=== PATIENT | male | born 1965 | race Caucasian/White ===

== ENCOUNTER 2019-04-06 13:16 | Emergency (ER) | payer BC ==
--- NOTE | 2019-04-06 14:20 | ED Physician Documentation ---
PD HPI CHEST PAIN - Stated complaint Stated Complaint: /VOMITING/SHAKING - Chief complaint Chief Complaint: Abd Pain - History obtained from History obtained from: Patient - History of Present Illness Timing - onset: How many hours ago (1) Timing - onset during: Rest Timing - duration: Hours (1) Timing - details: Abrupt onset Pain level max: 4 Pain level now: 3 Quality: Pressure, Tightness Location: Substernal Radiation: No: Jaw, Neck, Back, Abdominal, Left upper extremity, Right upper extremity Improved by: Nothing. No: Rest, Oxygen, Nitro, ASA, Antacids, Other medication Worsened by: No: Exertion, Inspiration, Eating, Movement, Palpation, Position Associated symptoms: No: Shortness of air, Diaphoresis, Nausea, Vomiting, Feeling faint / dizzy, General Weakness, Palpitations, Cough - Additional information Additional information: started after eating bratwurst Review of Systems Ten Systems: 10 systems reviewed and negative Constitutional: denies: Fever, Chills Respiratory: denies: Cough GI: denies: Nausea, Vomiting, Diarrhea Skin: denies: Rash Musculoskeletal: denies: Neck pain, Back pain Neurologic: denies: Headache PD PAST MEDICAL HISTORY - Past Medical History Past Medical History: Yes Cardiovascular: Hypertension, Other Respiratory: Sleep apnea, CPAP use Neuro: Other Endocrine/Autoimmune: Type 2 diabetes GI: None : None Musculoskeletal: None - Present Medications Home Medications: Ambulatory Orders Medication Instructions Recorded Confirmed No Known Home Medications 04/06/19 04/06/19 - Allergies Allergies/Adverse Reactions: Allergies Allergy/AdvReac Type Severity Reaction Status Date / Time prednisone AdvReac Unknown Verified 04/06/19 13:22 - Social History Does the pt smoke?: Yes Smoking Status: Current every day smoker PD ED PE NORMAL - Vitals Vital signs reviewed: Yes - General General: Alert and oriented X 3, No acute distress, Well developed/nourished - HEENT HEENT: PERRL, Moist mucous membranes - Neck Neck: Supple, no meningeal sign, No bony TTP - Cardiac Cardiac: RRR, Strong equal pulses - Respiratory Respiratory: No respiratory distress, Clear bilaterally - Abdomen Abdomen: Soft, Non tender, Non distended - Back Back: No spinal TTP - Derm Derm: Warm and dry - Extremities Extremities: No edema, No calf tenderness / cord - Neuro Neuro: Alert and oriented X 3 - Psych Psych: Normal mood, Normal affect Results - Vitals Vitals: Oxygen O2 Source Room air - EKG (time done) 1328 Rate: Rate (enter#) (67) Rhythm: NSR [place]: Normal Intervals: Normal FL QRS: Normal Ischemia: ST elevation c/w repol - Labs Labs: Laboratory Tests 04/06/19 04/06/19 04/06/19 13:40 14:34 14:34 WBC 6.3 RBC 4.65 L Hgb 13.0 L Hct 38.4 L MCV 82.6 MCH 28.0 MCHC 33.9 RDW 12.8 Plt Count 153 MPV 13.4 H Neut # (Auto) 4.8 Lymph # (Auto) 1.0 L Nye # (Auto) 0.5 Eos # (Auto) 0.0 Baso # (Auto) 0.0 Absolute Nucleated RBC 0.00 Nucleated RBC % 0.0 Sodium 133 L Potassium 4.5 Chloride 97 L Carbon Dioxide 24 Anion Gap 12.0 BUN 13 Creatinine 0.7 Estimated GFR (MDRD) 118 Glucose 319 H POC Whole Bld Glucose 317 H Calcium 9.0 Total Bilirubin 1.0 AST 16 ALT 18 Alkaline Phosphatase 48 Troponin I Troponin I High Sens Total Protein 7.1 Albumin 4.1 Globulin 3.0 Albumin/Globulin Ratio 1.4 Lipase 35 04/06/19 04/06/19 14:34 16:31 WBC RBC Hgb Hct MCV MCH MCHC RDW Plt Count MPV Neut # (Auto) Lymph # (Auto) Nye # (Auto) Eos # (Auto) Baso # (Auto) Absolute Nucleated RBC Nucleated RBC % Sodium Potassium Chloride Carbon Dioxide Anion Gap BUN Creatinine Estimated GFR (MDRD) Glucose POC Whole Bld Glucose Calcium Total Bilirubin AST ALT Alkaline Phosphatase Troponin I < 0.04 < 0.04 Troponin I High Sens 3.7 3.2 Total Protein Albumin Globulin Albumin/Globulin Ratio Lipase - Rads (name of study) cxr Radiology: Prelim report reviewed, EMP read contemporaneously, See rad report (No acute disease) PD MEDICAL DECISION MAKING - ED course Complexity details: reviewed results, re-evaluated patient, considered differential (No ST elevation [place], no aortic dissection, no PE, no tension pneumothorax, no aortic aneurysm), d/w patient ED course: 53-year-old male with atypical chest pain. Negative high-sensitivity troponin x2. No acute findings on EKG. Normal chest x-ray. Patient counseled regarding signs and symptoms for which I believe and urgent re-evaluation would be necessary. Patient with good understanding of and agreement to plan and is comfortable going home at this time This document was made in part using voice recognition software. While efforts are made to proofread this document, sound alike and grammatical errors may occur. Departure - Departure Disposition: Home, Self Care Clinical Impression: Chest pain Qualifiers: Chest pain type: unspecified Qualified Code(s): R07.9 - Chest pain, unspecified Condition: Good Instructions: ED Chest Pain Atypical Unkn Cause Follow-Up: Guillermina Garces ND [Primary Care Provider] - Within 1 week Comments: Return if you worsen. Follow-up with your doctor for further care. There is no evidence of a heart attack today. You should have a cardiac stress test within the next week with your doctor. Start on a baby aspirin daily Discharge Date/Time: 04/06/19 17:52
[2019-04-06 14:29] LABS: BASOPHILS % (AUTO) 0.3 %; EOSINOPHILS % (AUTO) 0.5 %; LYMPHOCYTES % (AUTO) 15.2 %; MEAN CORPUSCULAR HGB CONC 33.9 g/dL (32.0-36.0); MEAN CORPUSCULAR VOLUME 82.6 fL (80.0-94.0); MEAN PLATELET VOLUME 13.4 fL (7.4-11.4); MONOCYTES # (AUTO) 0.5 10^3/uL (0.0-1.0); MONOCYTES % (AUTO) 7.4 %; NEUTROPHILS # (AUTO) 4.8 10^3/uL (1.5-6.6); NEUTROPHILS % (AUTO) 76.3 %; PLT - PLATELET COUNT 153 10^3/uL (130-450); RED BLOOD COUNT 4.65 10^6/uL (4.70-6.10); RED CELL DISTRIBUTION WIDTH 12.8 % (12.0-15.0); WHITE BLOOD COUNT 6.3 x10^3/uL (4.8-10.8)
--- NOTE | 2019-04-06 14:41 | XRAY Report ---
Reason: Chest Pain Procedure Date: 04/06/2019 Accession Number: [id number] / [id number] Procedure: XR - Chest 1 View X-Ray CPT Code: 52558 FULL RESULT: EXAM: CHEST RADIOGRAPHY EXAM DATE: 04/06/2019 02:23 PM. CLINICAL HISTORY: Chest pain. COMPARISON: None. TECHNIQUE: 1 view. FINDINGS: Lungs/Pleura: No focal opacities evident. No pleural effusion. No pneumothorax. Mediastinum: Within exam limitations, the cardiomediastinal contour is normal. Other: None. IMPRESSION: No acute cardiopulmonary abnormality. RADIA
[2019-04-06 14:55] LABS: ALBUMIN 4.1 g/dL (3.2-5.5); ALBUMIN/GLOBULIN RATIO 1.4 (1.0-2.2); CREATININE 0.7 mg/dL (0.6-1.2); TOTAL PROTEIN 7.1 g/dL (6.7-8.2)
[2019-04-06 15:01] LABS: TROPONIN I < 0.04 ng/mL (<0.49)
[2019-04-06 16:53] LABS: TROPONIN I < 0.04 ng/mL (<0.49)
[2019-04-06 17:23] VITALS: BP 155/92
== END 2019-04-06 17:52 | disposition home or self-care (01) ==
LOC: ED 13:16
DX: R07.9 Chest pain, unspecified (principal); I10 Essential (primary) hypertension; E11.9 Type 2 diabetes mellitus without complications; F17.200 Nicotine dependence, unspecified, uncomplicated
CPT/HCPCS: 36415; 71045; 80053; 83690; 84484; 85025; 93005; 99284

== ENCOUNTER 2022-01-15 08:00 | Outpatient (CLI) | payer BC | END 2022-01-16 21:04 | disposition home or self-care (01) | LOC: LAB.N 08:00 | PROVIDERS: ATTEND Nurse Practitioner | DX: U07.1 COVID-19 (principal) ==

== ENCOUNTER 2023-09-02 08:12 | Outpatient (CLI) | payer BC ==
--- NOTE | 2023-09-02 09:27 | Sleep Patient Instructions ---
Sleep Center Visit Summary - Patient Visit Information Reason for Visit: Initial consultation - Patient Instructions Additional Instructions: You will continue with CPAP therapy with pressure set at 6-16 cmH2O. A supply prescription will be updated with your DME once we have a copy of your sleep study. We encourage you to continue to try to lose weight. Please follow up with the sleep care office in 3 months. - Clinic Information Contact: [facility] [address] [place] [id number] [email or web address] T: [phone]
--- NOTE | 2023-09-02 09:36 | SLEEP CARE CONSULTATION ---
Information from patient questionnaire entered by Nasra Zuniga. I have reviewed and concur with the information entered by Nasra Zuniga. This document represents the service I personally performed and the decisions made by me, Josephine Dumont ARNP. History of Present Illness Service Date and Time: 09/02/2023 0812 Reason for Visit: New patient, sleep apnea on CPAP therapy Chief Complaint: reports: Other (establish care) Date of Onset: 25+YRS Usual bedtime: 1130PM Time it takes to fall asleep: 60+MINS Snores at night: Yes Observed to quit breathing while asleep: Yes Sleeps alone due to snoring: No Number of times waking at night: 2 Reasons for waking at night: reports: Pain, Bathroom, Other (NOISE) Toss, Turn, or Twitch while sleeping: Yes Recalls having dreams: Yes Usually gets out of bed at: 3-10AM Feels refreshed in the morning: No Morning headache: No Sleepy or fatigued during the day: Yes Ever fallen asleep while driving: Yes Takes day naps: Yes Dreams during day naps: No Prior sleep studies: Yes Additional HPI information: EDUIN CARVAJAL was previously diagnosed to have unknown, AHI unknown, sleep apnea-hypopnea syndrome originally in 1999 and comes in today to establish care for CPAP therapy. Patient needs to be seen in [place] and records have been requested. He thinks that he last had a sleep study around 2019 when he got his new DreamStation that was then replaced with a DreamStation 2 by [employer]. - Parasomnia Symptoms Ever been unable to move upon waking from sleep: No Walks in sleep: No Talks in sleep: Yes Ever acted out dreams in sleep: Yes Ever felt weak in the knees when startled or emotional: No Bothered by creepy, crawly, restless sensations in legs: Yes Problems with memory or concentration: Yes CPAP Compliance Data - Data Reviewed with Patient Average duration of nightly device use: 6.04 hours Compliance rate %: 89 (352/365 days used) Current pressure setting (cmH2O): 6-16 (90% 10.1) Average residual AHI: 2.8 Compliance data discussion: He has a Dreamstation 2 that was sent to him from [employer]. He is using a full face mask, hybrid. He has not been able to change the cushion for over a year. He used to use [facility] to get his supplies from but he has not got any supplies for about 2 years. Subjective Patient concerns: reports: air blowing in eyes, mask leak noise, dry mouth, nose, throat (dry mouth; humidifier is not working), epistaxis. denies: aerophagia, mask discomfort, condensation in mask/hose, nasal congestion Observed to snore while using device: Yes Current pressure setting perceived as: comfortable On therapy, patient: reports: sleeping better, awakening more refreshed, being more awake and alert during the day, more rested overall. 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 Patient is and lives in [place]. Have you smoked in the past 12 months: No Cigarettes per day (20/pack): 20 Quit date: 1998 Alcohol use: Yes Alcohol amount and frequency: 1 DRINK MAYBE A WEEK Caffeine use: Yes Caffeine amount and frequency: 2 CUPS DAILY Family History Family history of sleep disordered breathing: Yes Family Hx Sleep Apnea: Father: Snoring, Sleep apnea - Treated, Sleep apnea - Untreated Allergies and Home Medications Known drug allergies: Yes (prednisone) Drug allergies reviewed: Yes Home medication list reviewed: Yes Allergy and home medication list: Allergies prednisone Adverse Reaction (Verified 09/01/23 16:16) Unknown Home Medications Medication Instructions Recorded Confirmed Last Taken Type Empagliflozin [Jardiance] See Rx Instructions .ROUTE .COMPLEX 09/02/23 09/02/23 Unknown History Insulin Glargine [Lantus Solostar] See Rx Instructions .ROUTE .COMPLEX 09/02/23 09/02/23 Unknown History Insulin Lispro [Humalog] See Rx Instructions .ROUTE .COMPLEX 09/02/23 09/02/23 Unknown History Lisinopril [Zestril] See Rx Instructions .ROUTE .COMPLEX 09/02/23 09/02/23 Unknown History Spironolactone [Aldactone] See Rx Instructions .ROUTE .COMPLEX 09/02/23 09/02/23 Unknown History carvediloL [Coreg] See Rx Instructions .ROUTE .COMPLEX 09/02/23 09/02/23 Unknown History Review of Systems Weight gain over past 5 years: 40 Weight loss over past 5 years: 40 Cardiovascular: reports: high blood pressure, leg or foot swelling, other (HEART FAILURE) Respiratory: reports: shortness of breath, chronic cough Urinary: reports: frequency, urgency Neurological: reports: gait or balance problems Ear/Nose/Throat: reports: dry mouth/throat, wisdom teeth removed, other (RINGING IN EAR) Endocrine: reports: sluggishness, excessive thirst, increased urination, unexplained weakness Musculoskeletal: reports: mobility problems Physical Exam Vital signs obtained and entered by: NASRA Portillo MA Blood Pressure: 151/93 (RIGHT ARM) Cuff size: regular Heart Rate: 86 O2 Saturation: 98 Height: 5 ft 10 in Weight: 240 lb 6.4 oz Body Mass Index: 34.4 BMI Classification: Obese Neck circumference: 17 Heart: regular rate and rhythm Lungs: clear bilaterally Impression and Plan 1. Obstructive Sleep Apnea-Hypopnea Syndrome, unknown, with good treatment compliance and good apnea control. On CPAP therapy, the patient has better sleep quality and is more rested overall. He needs to be able to get supplies and he used to use [facility]. A supply prescription will then be made once I have a copy of his last sleep study. Patient advised to contact this office if further supply problems. He has been using the same cushion for over a year. I fit him with an Annie View, large cushion, to reduce mask leaks and air in his eyes. I also increased his humidity setting from 1 to 3 to help reduce oral dryness. He thinks he is oral venting and I advised trying a chinstrap to keep chin up. He voiced understanding. I will have him come back in 3 months to make sure he was able to get everything going smoothly. Patient's apnea severity and rationale for treatment to reduce apnea, improve sleep quality and reduce cardiovascular and cerebrovascular events was reviewed. I also reviewed the benefit of consistent device use of CPAP for hypertension, cardiac disease (CHF, CHD, [place]), diabetes and insulin resistance. 2. Obesity, unspecified. Currently patients BMI is 34.4. Obesity increases the risk of apnea, CPAP pressure requirements and overall health risks especially cardiovascular and diabetes. Thus patient is advised to lose weight. * Continue auto CPAP pressure at 6-16 cmH2O * Update supply prescription once I get copy of sleep study * Notify me if snoring with mask or feeling that the pressure is too much or too little * Attempt to lose weight * Call this office if any problems using CPAP * Return for follow up in 3 months, or sooner if concerns arise Counseling Topics: Spare mask, Weight loss health impact Prescriptions: Device supplies Follow up with Sleep Care in: 3 months Visit Type: In Office Time Spent with Patient (minutes): 49 Provider Statement: I spent 100% of the Face to Face Visit with the patient with greater than 50% spent counseling the patient and coordination of care.
[2023-09-02 09:44] VITALS: BP 151/93; O2SAT 98
== END 2023-09-02 08:13 | disposition home or self-care (01) ==
LOC: SC 08:12
PROVIDERS: ATTEND Nurse Practitioner Family
DX: G47.33 Obstructive sleep apnea (adult) (pediatric) (principal); E66.9 Obesity, unspecified; Z68.34 Body mass index [BMI] 34.0-34.9, adult; Z87.891 Personal history of nicotine dependence
CPT/HCPCS: 99203; 99212

== ENCOUNTER 2023-12-02 08:56 | Outpatient (CLI) | payer BC ==
--- NOTE | 2023-12-02 09:20 | Sleep Patient Instructions ---
Sleep Center Visit Summary - Patient Visit Information Reason for Visit: 3-month follow-up - Patient Instructions Additional Instructions: You were here for follow up of CPAP therapy. You will be continued on CPAP therapy with pressure at 6-16 cmH2O. You should follow up with sleep care in 12 months. You may contact us sooner for any questions or concerns. - Clinic Information Contact: [facility] [address] [place] [address] [email or web address] T: [phone]
--- NOTE | 2023-12-02 09:26 | SLEEP CARE CONSULTATION ---
Information from patient questionnaire entered by Ted Zuniga. I have reviewed and concur with the information entered by Ted Zuniga. This document represents the service I personally performed and the decisions made by me, Josephine Dumont ARNP. History of Present Illness Service Date and Time: 12/02/2023 0856 Previous diagnosis: Severe, Obstructive Sleep Apnea-Hypopnea Syndrome AHI: 30.4 (06/15/2012) Reason for follow up: three month (F/U) Equipment type: CPAP (Dreamstation 2) Equipment obtained from: Other ([facility]; getting supplies) Mask style: Full face (hybrid) Backup mask available: Yes (other mask) Year and Where: 06/15/2012, [facility] HPI additional information: EDUIN CARVAJAL was diagnosed to have severe, AHI 30.4, obstructive sleep apnea-hypopnea syndrome and returned today for CPAP therapy three month follow- up. CPAP Compliance Data - Data Reviewed with Patient Average duration of nightly device use: 6 hours 18 minutes Compliance rate %: 90.7 (357/365 days used) Current pressure setting (cmH2O): 6-16 Average residual AHI: 3.1 Central apnea: 0.1 Obstructive apnea: 0.4 Hypopnea: 2.6 Average large leak: 4 mins 39 secs Subjective Patient concerns: reports: dry mouth, nose, throat. denies: aerophagia, mask discomfort, air blowing in eyes, mask leak noise, condensation in mask/hose, nasal congestion, epistaxis Observed to snore while using device: No Current pressure setting perceived as: comfortable On therapy, patient: reports: sleeping better (not getting enough sleep at night, only about 4 hours), more rested overall. denies: drowsiness while driving Initial [place] Sleepiness Scale score: 20 (09/02/23) Current [place] Sleepiness Scale score: 15 (12/02/23) Allergies and Home Medications Known drug allergies: Yes (prednisone) Drug allergies reviewed: Yes Home medication list reviewed: Yes (Isosorbide) Allergy and home medication list: Allergies prednisone Adverse Reaction (Verified 11/30/23 09:37) Unknown Review of Systems Review of systems same as previous: No (4 heart stents placed) Physical Exam Vital signs obtained and entered by: TED Portillo MA Blood Pressure: 185/93 (RIGHT ARM) Cuff size: regular Heart Rate: 62 O2 Saturation: 99 Height: 5 ft 10 in Weight: 244 lb 6.4 oz Body Mass Index: 35.0 BMI Classification: Obese Impression and Plan 1. Obstructive Sleep Apnea-Hypopnea Syndrome, severe, with good treatment compliance and good apnea control. Patient states he is using his CPAP but he just does not get very much sleep, only about 4 hours a night. He thinks his fatigue and overall tiredness is due to his diabetes and heart issues going on r ight now he just had more stents placed in his heart. He does get very dry in the mouth when using his CPAP. I looked at his machine and it looks like his humidifier is set at 1. I encouraged him to increase this to 2 or 3 to see if that will help reduce his oral dryness. He voiced understanding. Patient's apnea severity and rationale for treatment to reduce apnea, improve sleep quality and reduce cardiovascular and cerebrovascular events was reviewed. I also reviewed the benefit of consistent device use of CPAP for hypertension, cardiac disease (CHF, CHD, [place]), diabetes and insulin resistance. 2. Obesity, unspecified. Currently patients BMI is 35. Obesity increases the risk of apnea, CPAP pressure requirements and overall health risks especially cardiovascular and diabetes. Thus patient is advised to lose weight. * Continue auto CPAP pressure at 6-16 cmH2O * Notify me if snoring with mask or feeling that the pressure is too much or too little * Attempt to lose weight * Call this office if any problems using CPAP * Return for follow up in 12 months, or sooner if concerns arise Counseling Topics: Spare mask, Weight loss health impact Follow up with Sleep Care in: 1 year Visit Type: In Office Time Spent with Patient (minutes): 22 Provider Statement: I spent 100% of the Face to Face Visit with the patient with greater than 50% spent counseling the patient and coordination of care.
[2023-12-02 09:30] VITALS: BP 185/93; O2SAT 99
== END 2023-12-02 08:57 | disposition home or self-care (01) ==
LOC: SC 08:56
PROVIDERS: ATTEND Nurse Practitioner Family
DX: G47.33 Obstructive sleep apnea (adult) (pediatric) (principal); E66.9 Obesity, unspecified; Z68.35 Body mass index [BMI] 35.0-35.9, adult
CPT/HCPCS: 99212; 99213